=== PATIENT | female | born 1955 | race Caucasian/White ===

== ENCOUNTER 2017-05-15 12:21 | Inpatient (IN) ==
[2017-05-15 13:48] LABS: Basophils % 0.5 %; Hematocrit 39.8 % (35.3-44.9); Hemoglobin 13.3 g/dL (11.5-15.4); Immature Granulocytes % 0.4 % (0-4); Lymphocytes # 2.7 K/mcL (0.6-4.6); Lymphocytes % 32.5 %; Mean Corpuscular HGB Conc 33.4 g/dL (31.6-35.5); Mean Corpuscular Volume 89.8 fL (83.0-100.0); Mean Platelet Volume 9.5 fL (9.4-12.4); Monocytes # 0.7 K/mcL (0.0-1.3); Monocytes % 8.2 %; Neutrophils # 4.9 K/mcL (1.6-8.9); Platelet Count 360 K/mcL (140-400); Red Blood Count 4.43 M/mcL (3.82-4.97); Red Cell Distribution Width 13.1 % (11.5-14.5); Segmented Neutrophils % 58.4 %
[2017-05-15 14:02] LABS: Potassium 3.6 mEq/L (3.5-4.5)
[2017-05-15 14:05] LABS: Calcium 14.9 mg/dL (8.6-10.8)
[2017-05-15] MEDS ORDERED: 0.9 % Sodium Chloride 1,000 ML IVC ONE (14:36)
[2017-05-15 14:44] LABS: Bilirubin,Urine Negative (Negative); Blood,Urine Negative (Negative); Clarity,Urine Clear (Clear); Color,Urine Yellow (Yellow); Glucose,Urine (UA) Normal (Normal); Ketones,Urine Negative (Negative); Leukocyte Esterase,Urine Small (Negative); Nitrite,Urine Negative (Negative); PH,Urine 5.5 pH Units (5.0-8.0); Protein,Urine Negative (Neg-Trace); Specific Gravity,Urine 1.024 (1.010-1.025); Urobilinogen,Urine Normal (Normal)
[2017-05-15 14:47] LABS: Bacteria,Urine None Seen per hpf (None-Few); Hyaline Casts,Urine None Seen per lpf (None-Few); RBC,Urine 0-3 per hpf (0-3); Squamous Epithelial Cell,Urine Many per lpf (None-Few)
--- NOTE | 2017-05-15 15:12 | Emergency Department Note ---
Disposition Clinical Impression: Hypercalcemia, Acute kidney injury Disposition: Admitted As Inpatient Condition: Good Referrals: Liz Gamez, [employer] [Primary Care Provider] - Forms: ED Satisfaction Letter Time of Disposition: 15:13 General Adult HPI - General Chief complaint: ED Recheck/Abnormal Lab/Rx Stated complaint: "renal failure" Time Seen by Provider: 05/15/17 13:14 Source: patient Mode of arrival: ambulatory Limitations: no limitations Nursing Notes Reviewed: Yes Vital Signs Reviewed: Yes - History of Present Illness HPI Narrative: 61-year-old female presents with concerns of abnormal kidney function on outpatient testing. Patient has had a progressive decline of her kidney function over the past 6 months and was sent into the emergency department by her primary care provider. Patient denies nausea, vomiting, diarrhea, abdominal pain, chest pain, shortness of breath. She states that she is eating and drinking well at home without difficulty. Pain Scale: 4 - Related Data Home Medications Medication Instructions Recorded Confirmed Biotin 1 mg PO DAILY 08/14/16 08/14/16 Calcium Carbonate/Vitamin D3 1 each PO DAILY 08/14/16 08/14/16 [Calcium 1,000 + D3 Caplet] Cyanocobalamin (Vitamin B-12) 1,000 mcg SL DAILY 08/14/16 08/14/16 [Vitamin B-12] Esomeprazole Magnesium [Nexium 20 mg PO DAILY 08/14/16 08/14/16 24Hr] Levothyroxine [Synthroid] 88 mcg PO DAILY 08/14/16 08/14/16 Multivitamin [Multivitamins] 1 each PO DAILY 08/14/16 08/14/16 Oxybutynin [Ditropan] 5 mg PO BID 08/14/16 08/14/16 Syringe W-Needle,Disposab,1 ml 1 each IJ WE 08/14/16 08/14/16 [Allergy Syringe] Valsartan/Hydrochlorothiazide 1 each PO DAILY 08/14/16 08/14/16 [Diovan Hct 320-25 mg Tablet] Azo 12/23/16 12/23/16 Previous Rx's Medication Instructions Recorded Polymyxn-B/Trimeth Opth Drops 1 drop LEFT EYE QID 7 Days 12/23/16 [Polytrim Opth Drops] Sulfamethoxazole/Trimeth DS 1 each PO BID #10 tablet 12/23/16 [Bactrim DS] HYDROcodone/Acet 5/325 mg [[place] 1 tab PO Q6H PRN #10 tab 04/11/17 5-325 mg] Allergies Allergy/AdvReac Type Severity Reaction Status Date / Time Penicillins [PCN] Allergy Rash Verified 05/15/17 12:34 All systems ED: reviewed and negative except as stated. Constitutional: Denies: fever, chills, weakness Cardiovascular: Denies: chest pain, palpitations Respiratory: Denies: cough, dyspnea, wheezes Gastrointestinal: Denies: abdominal pain, nausea, vomiting Past Medical History - Past Medical History Attestation: Yes The following information was validated with the patient. Source: patient Medical history: Reports: hypertension, renal disease, thyroid disease, other Surgical history: Reports: cholecystectomy Psychiatric history: Reports: no psych history - Social History Smoking Status: Never smoker Smokeless Tobacco Status: No Alcohol use: Reports: rarely Drug use: Reports: none Physical Exam General: Alert and in no acute distress Skin: Warm, dry, intact Head: Normocephalic and atraumatic Neck: Supple, trachea midline and no tenderness Cardiovascular: RRR, no murmur, normal perfusion Respiratory: CTAB, no wheezing, cough, or respiratory distress Musculoskeletal: Normal strength, no tenderness, swelling or deformity GI: Soft, nontender, nondistended. Bowel sounds present Neuro: A&O to person, place, time and situation. No focal deficits noted on exam Psychiatric: cooperative and appropriate mood and affect. - General Limitations: no limitations General appearance: alert, in no apparent distress Course Vital Signs Temperature 98.0 F 05/15/17 12:32 Pulse Rate 93 05/15/17 12:32 Respiratory Rate 16 05/15/17 12:32 Blood Pressure 122/80 05/15/17 12:32 O2 Sat by Pulse Oximetry 97 05/15/17 12:32 Temperature 98.0 F 05/15/17 12:32 Pulse Rate 82 05/15/17 14:32 Respiratory Rate 18 05/15/17 14:32 Blood Pressure 122/52 05/15/17 14:32 O2 Sat by Pulse Oximetry 97 05/15/17 14:32 Oxygen Delivery Oxygen Delivery Room Air Medical Decision Making - MDM Narrative Medical decision making narrative: Patient is significantly elevated calcium level which is most concerning for possible malignancy. Her hypercalcemia may be the reason for her progressive decline in her kidney functioning. He spoke with Dr. Hammond, with whom the patient had an appointment scheduled, who agreed with the plan for admission to the hospital for further evaluation of possible malignancy and aggressive rehydration. - Medical Records Medical records reviewed: Yes I reviewed the patient's medical records. - Lab Data Lab results reviewed: Yes I reviewed the patient's lab results. Result diagrams: 05/15/17 13:35 05/15/17 13:35 Lab Results 05/15/17 05/15/17 05/15/17 Range/Units 13:35 13:35 14:39 WBC 8.4 (4.3-11.1) K/mcL RBC 4.43 (3.82-4.97) M/mcL Hgb 13.3 (11.5-15.4) g/dL Hct 39.8 (35.3-44.9) % MCV 89.8 (83.0-100.0) fL MCH 30.0 (28.0-33.3) pg MCHC 33.4 (31.6-35.5) g/dL RDW 13.1 (11.5-14.5) % Plt Count 360 (140-400) K/mcL MPV 9.5 (9.4-12.4) fL Immature Gran % 0.4 (0-4) % Seg Neutrophils % 58.4 % Lymphocytes % 32.5 % Monocytes % 8.2 % Eosinophils % 0.0 % Basophils % 0.5 % Neutrophils # 4.9 (1.6-8.9) K/mcL Lymphocytes # 2.7 (0.6-4.6) K/mcL Monocytes # 0.7 (0.0-1.3) K/mcL Eosinophils # 0.0 (0.0-0.6) K/mcL Basophils # 0.0 (0.0-0.2) K/mcL Sodium 138 (136-145) mEq/L Potassium 3.6 (3.5-4.5) mEq/L Chloride 101 (98-109) mEq/L Carbon Dioxide 25 (19-29) mEq/L BUN 102 H (7-20) mg/dL Creatinine 3.27 H (0.57-1.11) mg/dL Est GFR ( Amer) 18 L (> 60) Est GFR (Non-Af Amer) 14 L (> 60) BUN/Creatinine Ratio 31 H (6-26) Glucose 111 H (70-99) mg/dL Calculated Osmolality 319 H (280-300) Calcium 14.9 H* (8.6-10.8) mg/dL Ur Specimen Adequacy See below A Urine Color Yellow (Yellow) Urine Clarity Clear (Clear) Urine pH 5.5 (5.0-8.0) pH Units Ur Specific [place] 1.024 (1.010-1.025) Urine Protein Negative (Neg-Trace) mg/dL Urine Glucose (UA) Normal (Normal) mg/dL Urine Ketones Negative (Negative) mg/dL Urine Blood Negative (Negative) Urine Nitrite Negative (Negative) Urine Bilirubin Negative (Negative) Urine Urobilinogen Normal (Normal) mg/dL Ur Leukocyte Esterase Small H (Negative) Urine Microscopic RBC 0-3 (0-3) per hpf Urine Microscopic WBC 5-15 H (0-3) per hpf Ur Squamous Epith Cells Many H (None-Few) per lpf Urine Bacteria None Seen (None-Few) per hpf Hyaline Casts None Seen (None-Few) per lpf Ur Culture Indicated? YES A (NO) - Radiology Data Radiology results reviewed: Yes I reviewed the patient's radiology results.
[2017-05-15] MEDS ORDERED: Acetaminophen 325 MG TABLET PO PRN (16:41)
[2017-05-15] MEDS ORDERED: Naloxone 0.4 MG/ML INJ IVP PRN (16:41)
--- NOTE | 2017-05-15 16:55 | Internal Med History&Physical ---
<Krista Dickinson M - Last Filed: 05/15/17 19:09> Date of Encounter: 05/15/17 Time of Encounter: 16:51 Assessment and Plan (1) Acute kidney injury Current visit: Yes Status: Acute Patient's BUN and creatinine elevated today to 102, and 3.27 respectively. Previous creatinine was 1.78 on April 29. Patient also had a retroperitoneal ultrasound done today as an outpatient due to the concern for her kidney function and it showed left renal atrophy, with the left kidney being echogenic and containing small cysts, no hydronephrosis. Hold home dose of valsartan hydrochlorothiazide. Hydrate with 0.9 normal saline at [address] Hammond of nephrology consulted and will see patient. (2) Hypercalcemia Current visit: Yes Status: Acute Calcium of 14.9 today up from normal value on April 29. Patient reporting occasional feet tingling, but otherwise denying any symptoms that would be associated with hypercalcemia. Patient reports she stopped her PPI a few weeks ago after her daughter found something online that said it might be causing problems with her kidneys, and has instead been taking Tums at least daily in addition to her daily calcium supplement. Hypercalcemia may be result of increased oral intake along with COURTNEY, but concern for malignancy as well. We will hold Tums and calcium supplement. Check PTH and phosphorus. Check calcium with labs tomorrow morning. (3) Hypertension Current visit: Yes Status: Acute Holding home losartan/HCTZ due to COURTNEY. Patient's blood pressure has been controlled since arrival. Hydralazine 10mg IVP Q6hr PRN for SBP > 160 or DBP > 100. Qualifiers: Hypertension type: essential hypertension Qualified Code(s): I10 - Essential (primary) hypertension (4) Sleep apnea Current visit: Yes Status: Acute Respiratory therapy consulted for CPAP. Qualifiers: Sleep apnea type: unspecified type Qualified Code(s): G47.30 - Sleep apnea , unspecified (5) Borderline diabetes Current visit: Yes Status: Acute Patient reports "borderline diabetes". Will check Hgb A1c and monitor glucose with daily chemistry. (6) DVT prophylaxis Current visit: Yes Status: Acute anti-embolic stockings Heparin 5000u SQ TID Internal Medicine - H&P: HPI Chief complaint: abnormal lab values Admitted From: Emergency Dept Plans for Post Hospital Care: Home History of present illness: Ms. Welch is a 61 year old female with hypertension, hypothyroid, acid reflux , borderline diabetes, and sleep apnea presented to the emergency department today at the instruction her PCP for abnormal lab values. Patient's PCP has been following her kidney function recently as it has been shown to be getting worse. She had labs drawn this morning as well as a retroperitoneal ultrasound because of this, and her kidney function was significantly worse. Her creatinine was up to 3.27, from 1.78 on April 29. BUN was also elevated at 102. Additionally her calcium was elevated to 14.5, up from normal value on April 29. Patient denies any significant symptoms. She denies any lightheadedness, chest pain, palpitations, nausea, vomiting, abdominal pain, muscle cramping. She reports a little bit increased shortness of breath while walking recently. She also reports that her feet have been tingling on and off for the last 3 months. Evaluation in the emergency department included a repeat of labs which confirmed the elevated creatinine and calcium. Dr. Hammond of nephrology was consulted and plans to see the patient. On exam, patient alert and oriented, in no acute distress. Heart has regular rate and rhythm, lungs are clear bilaterally to auscultation. Peripheral pulses intact, trace bilateral lower extremity peripheral edema. Past Med Surg Social Fam HX - Past Medical History Medical history: GERD, hypertension, renal disease, thyroid disease, other Psychiatric history: no psych history - Past Surgical History Surgical History: cholecystectomy - Social History Smoking Status: Never smoker Smokeless Tobacco Status: No Alcohol use: rarely Drug use: none - Family History Mother Living Status: Still Living Father Living Status: Age at : 73 Hx Family Genitourinary Disorders: Yes (ESRD on HD) Internal Medicine - H&P: Meds Levothyroxine [Synthroid] 88 mcg PO QAM 08/14/16 [History] Multivitamin [Multivitamins] 1 each PO DAILY 08/14/16 [History] Oxybutynin [Ditropan] 5 mg PO BID 08/14/16 [History] Syringe W-Needle,Disposab,1 ml [Allergy Syringe] 1 each IJ WE 08/14/16 [History] Valsartan/Hydrochlorothiazide [Diovan Hct 320-25 mg Tablet] 1 each PO DAILY [History] Albuterol Sulfate [Ventolin Hfa] 2 puff IH Q4H PRN 05/15/17 [History] Biotin 5 mg PO DAILY 05/15/17 [History] Calcium Carbonate [Calcium] 1,000 mg PO DAILY 05/15/17 [History] EPINEPHrine [Epipen] 0.3 mg IM ONCE PRN 05/15/17 [History] Allergies Penicillins [PCN] Allergy (Verified 05/15/17 12:34) Rash All Systems PM: A 10-system review of systems was performed and is negative for pertinent findings except as documented above in the HPI. - Constitutional Constitutional: no chills, no fever(s), no night sweats - EENT Eyes: no change in vision, no discharge, no pain, no photophobia Ears: no ear discharge, no ear pain, no tinnitus Nose, mouth and throat: no dysphagia, no nasal discharge, no neck pain, no sore throat - Cardiovascular Cardiovascular ROS IM: dyspnea on exertion, no chest pain, no diaphoresis, no dyspnea, no lightheadedness, no palpitations, no syncope - Respiratory Respiratory: no cough, no dyspnea, no wheezing, no excessive phlegm production - Gastrointestinal Gastrointestinal: no abdominal pain, no diarrhea, no hematemesis, no hematochezia, no melena, no nausea, no vomiting - Genitourinary Genitourinary: no change in urinary stream, no dysuria, no flank pain, no hematuria - Musculoskeletal Musculoskeletal ROS IM: tingling (in feet on and off), no numbness - Integumentary Integumentary IM: no rash, no unusual bruising - Neurological Neurological ROS: no confusion, no convulsions, no focal weakness, no numbness, no tingling, no tremor(s) - Hematologic/Lymphatic Hematologic/Lymphatic: no easy bruising - Constitutional Vitals: Temp Pulse Resp BP Pulse Ox 98.0 F 57 18 118/58 98 05/15/17 12:32 05/15/17 15:57 05/15/17 15:57 05/15/17 15:57 05/15/17 15:57 General appearance: Present: A&O X 3, morbidly obese, pleasant, no acute distress - Head Head exam: Present: atraumatic, normocephalic - Eye Eye exam: Present: PERRL, conjuntiva pink, sclera anicteric Pupils: Present: PERRL - Neck Neck exam general surgery: Present: supple, trachea midline. Absent: lymphadenopathy - Respiratory Respiratory exam: Present: CTAB. Absent: accessory muscle use, rales, rhonchi, wheezes - Cardiovascular Cardiovascular exam: Present: RRR, +S1, +S2. Absent: diastolic murmur, gallop, rubs, systolic murmur - GI/Abdominal GI/Abdominal exam: Present: normal bowel sounds, soft, no peritoneal signs. Absent: distended, tenderness - Extremities Exam Extremities exam: Present: pedal edema (trace bilateral), warm, radial pulses palpable and symetrical. Absent: calf tenderness, cyanotic - Neurological Exam Neurological exam: Present: CN II-XII intact, oriented X3, no focal deficits. Absent: facial droop, speech deficit - Skin Skin exam: Present: dry, intact Internal Med - H&P Results - Labs CBC & Chem 7: 05/15/17 13:35 05/15/17 13:35 Labs: Short CBC 05/15/17 Range/Units 13:35 WBC 8.4 (4.3-11.1) K/mcL Hgb 13.3 (11.5-15.4) g/dL Hct 39.8 (35.3-44.9) % Plt Count 360 (140-400) K/mcL Neutrophils # 4.9 (1.6-8.9) K/mcL BMP 05/15/17 13:35 Sodium 138 Potassium 3.6 Chloride 101 Carbon Dioxide 25 BUN 102 H Creatinine 3.27 H Glucose 111 H Calcium 14.9 H* Urine 05/15/17 Range/Units 14:39 Urine Color Yellow (Yellow) Urine Clarity Clear (Clear) Urine pH 5.5 (5.0-8.0) pH Units Ur Specific [place] 1.024 (1.010-1.025) Urine Protein Negative (Neg-Trace) mg/dL Urine Glucose (UA) Normal (Normal) mg/dL <Rodri Islas - Last Filed: 05/15/17 19:21> Date of Encounter: 05/15/17 Internal Medicine - H&P: HPI History of present illness: Ms. Welch is a 61 year old female All Systems PM: A 10-system review of systems was performed and is negative for pertinent findings except as documented above in the HPI. - Constitutional Vitals: Temp Pulse Resp BP Pulse Ox 97.8 F 58 18 109/68 96 05/15/17 17:41 05/15/17 17:41 05/15/17 17:41 05/15/17 17:41 05/15/17 17:41 Internal Med - H&P Results - Labs CBC & Chem 7: 05/15/17 13:35 05/15/17 13:35 - Attending Attestation I have seen and examined pt. I discussed with TI[employer] DESIGN ENGINEER regarding the management plan. I agree with the documentation. Pt has progressive worsen renal function. She has hypercalcemia as well. Will treat pt with IVF, f/u renal function, calcium level, and PTH. nephro consult informed.
[2017-05-15 17:19] LABS: Phosphorous 3.9 mg/dL (2.3-4.7)
[2017-05-15] MEDS: 0.9 % Sodium Chloride 1,000 ML IVC SCH (19:49)
[2017-05-15] MEDS: *HR* Heparin 5,000 UNIT/ML VIAL SQ SCH (23:56)
[2017-05-16 05:19] LABS: Hemoglobin A1C 5.9 %
[2017-05-16 05:21] LABS: Basophils % 0.4 %; Hematocrit 33.5 % (35.3-44.9); Immature Granulocytes % 0.4 % (0-4); Lymphocytes # 1.7 K/mcL (0.6-4.6); Lymphocytes % 16.2 %; Mean Corpuscular HGB Conc 33.1 g/dL (31.6-35.5); Mean Corpuscular Hemoglobin 30.5 pg (28.0-33.3); Monocytes # 0.9 K/mcL (0.0-1.3); Monocytes % 8.1 %; Platelet Count 258 K/mcL (140-400); Red Blood Count 3.64 M/mcL (3.82-4.97); Red Cell Distribution Width 13.3 % (11.5-14.5); Segmented Neutrophils % 74.9 %
[2017-05-16 05:24] LABS: Albumin 3.4 g/dL (3.5-5.0); Albumin/Globulin Ratio 0.9 (1.1-2.2); Bilirubin,Total 0.4 mg/dL (0.2-1.2); Globulin 3.8 g/dL (2.4-3.5); Phosphorous 2.7 mg/dL (2.3-4.7); Total Protein 7.2 g/dL (6.0-8.3)
[2017-05-16 05:26] LABS: Calcium 11.4 mg/dL (8.6-10.8)
[2017-05-16 05:30] LABS: Hemoglobin 11.1 g/dL (11.5-15.4)
[2017-05-16] MEDS: 0.9 % Sodium Chloride 1,000 ML IVC SCH ×3 (05:52→21:17)
--- NOTE | 2017-05-16 10:38 | Nephrology Consult Note ---
Date of Encounter: 05/16/17 Time of Encounter: 10:38 Assessment and Plan (1) Acute kidney injury Current Visit: Yes Status: Acute 61-year-old female history of hypothyroidism, reflux, prediabetes, osteoporosis presents with worsening renal function. since 2013 patient has been insecurity stage IIIA Renal function declined since November 2016 Presented with GFR 14. Calcium 14.5: on calcium carbonate, lisinopril hydrochlorothiazide, multivitamin and Tums PTH 7.2 Kidney ultrasound shows atrophic left kidney measuring 6 cm and right kidney measuring 10 cm. Albumin 3.4 There is no proteinuria in the urine. Plan: Baseline CKD stage IIIA now worsening. Unknown etiology at this point: unclear why left kidney is atrophic. There is a prerenal component as patient's kidney function improved with fluids. This also improved hypercalcemia. Underlying Malignancy? order immunoelectroparesis, PTrP order MAYRA, Hypoparathyroidism: Order 1-25 and 25 hydroxy Vit D levels Avoid nephrotoxic agents such as contrast and NSAIDs. (2) CKD (chronic kidney disease) Current Visit: Yes Status: Acute Qualifiers: Chronic kidney disease stage: stage 3 (moderate) Qualified Code(s): N18.3 - Chronic kidney disease, stage 3 (moderate) (3) Borderline diabetes Current Visit: Yes Status: Acute prediabetes A1c 5.9 no microalbuminuria (4) Hypercalcemia Current Visit: Yes Status: Acute plan as above (5) Hypertension Current Visit: Yes Status: Acute controlled. Hold valsartan and hydrochlorothiazide as patient is hypercalcemic and in COURTNEY Qualifiers: Hypertension type: essential hypertension Qualified Code(s): I10 - Essential (primary) hypertension History of Present Illness - Reason for Consult Consult date: 05/15/17 Acute Kidney Injury, Chronic Kidney Disease - Chief Complaint worsening renal function - History of Present Illness [age] female with history of osteo-porosis, hypertension, prediabetes, hypothyroidism presents to the ER due to worsening kidney function. The last 6 months patient's GFR has dropped from 50 to 14. On presentation patient denies nausea, vomiting, diarrhea, abdominal pain, fevers, chills, shortness of breath. States she has changed her diet to renal diet and is drinking 2 L of water per day. She has been taking herself, compliant with her medications. Denies any problems with urine production. Denies UTI. Denies recent travel. She had an ultrasound in the morning of her admission showing atrophic left kidney measuring 6 cm compared to right kidney measuring 10 cm. Had elevated calcium of 14 which was normal in April 29 and also a low PTH of 7.3. States she has felt fatigued recently. Denies history of cancer in immediate family. States and has breast cancer. Denies history of kidney disease in family. Denies smoking, drinking alcohol. Patient also has history of GERD and he spent Nexium. This list of as she thought it was causing her worsening kidney function, and is not treating her heartburn with Tums. Patient received 2 L of saline on admission. This improved her GFR to 20. She also had increased urination and 3 bouts of loose stools this morning that is new. Past Med Surg Social Fam HX - Past Medical History Medical history: GERD, hypertension, renal disease, thyroid disease, other Psychiatric history: no psych history - Past Surgical History Surgical History: cholecystectomy - Social History Smoking Status: Never smoker Smokeless Tobacco Status: No Alcohol use: rarely Drug use: none - Family History Mother Living Status: Still Living Father Living Status: Age at : 73 Hx Family Genitourinary Disorders: Yes (ESRD on HD) Medications and Allergies Levothyroxine [Synthroid] 88 mcg PO QAM 08/14/16 [History] Multivitamin [Multivitamins] 1 each PO DAILY 08/14/16 [History] Oxybutynin [Ditropan] 5 mg PO BID 08/14/16 [History] Syringe W-Needle,Disposab,1 ml [Allergy Syringe] 1 each IJ WE 08/14/16 [History] Valsartan/Hydrochlorothiazide [Diovan Hct 320-25 mg Tablet] 1 each PO DAILY [History] Albuterol Sulfate [Ventolin Hfa] 2 puff IH Q4H PRN 05/15/17 [History] Biotin 5 mg PO DAILY 05/15/17 [History] Calcium Carbonate [Calcium] 1,000 mg PO DAILY 05/15/17 [History] EPINEPHrine [Epipen] 0.3 mg IM ONCE PRN 05/15/17 [History] Allergies Penicillins [PCN] Allergy (Verified 05/15/17 12:34) Rash Review of Systems All Systems review (narrative): Constitutional: Denies fever, chills. Reports fatigue HEENT: Denies headache, vision changes, neck pain, sore throat, rhinorrhea Heart: Denies chest pain palpitations Lungs: Denies shortness of breath cough Abdomen: Denies abdominal pain nausea vomiting, melena, hematochezia. Reports loose stools Back: Denies back pain Kidney: Denies dysuria, hematuria Extremities: Denies swelling, pain Neuro: Denies numbness, and tingling Exam - Vital Signs Vital signs: Initial Vital Signs Temp Pulse Resp BP Pulse Ox 98.0 F 93 16 122/80 97 05/15/17 12:32 05/15/17 12:32 05/15/17 12:32 05/15/17 12:32 05/15/17 12:32 Vital Signs - Last 8 Hours Temp Pulse Resp BP Pulse Ox 05/16/17 08:07 97 05/16/17 06:50 97.7 F 62 16 99/66 97 05/16/17 06:00 97.6 F 71 18 107/58 97 Intake and Output 05/15/17 05/16/17 05/16/17 23:59 07:59 15:59 Intake Total 1120 / 1120 1100 / 1100 0 / 0 Output Total 0 / 0 0 / 0 Balance 1120 / 1120 1100 / 1100 0 / 0 Intake: IV Fluids 1000 / 1000 1000 / 1000 0.9 % Sodium Chloride 1, 1000 / 1000 1000 / 1000 000 ML @ 100 mls/hr IVC . Q10H PIPPA Rx#:[id number] Oral 120 / 120 100 / 100 0 / 0 Output: Urine 0 / 0 0 / 0 Other: Meal Dinner Breakfast Percent of Meal Consumed 100% 0% Stool Size Moderate Stool Consistency loose loose Stool Color Brown # Voids 4 1 # Bowel Movements 3 # Bowel Movement Diapers 1 Weight 81.42 kg 82.645 kg Patient Weight 05/16/17 23:59 Weight 82.645 kg - General Appearance General appearance: well-developed, well-nourished, appears started age, obese EENT: PERRL, mucous membranes moist Neck: no JVD, no thyromegaly, supple Respiratory: clear Cardiology: no murmurs, no rub, no gallops, no edema, regular rate, regular rhythm, normal S1, normal S2 Gastrointestinal: normoactive bowel sounds, no tenderness, no guarding, no organomegaly, no masses Integumentary: no rash, warm and dry Neurologic: no focal deficit, no asterixis, alert and oriented x3, reflexes 2+ and symmetric, gait normal, strength 5/5 Musculoskeletal: no deformities, no erythema, no cyanosis, no clubbing Psychiatric: mood/affect appropriate, cooperative Results - Lab Results 05/16/17 04:53 05/16/17 04:53 Most recent lab results Calcium 11.4 mg/dL (8.6-10.8) H D 05/16/17 04:53 Phosphorus 2.7 mg/dL (2.3-4.7) 05/16/17 04:53 Consult Discharge Plan - Plan Referrals: Liz Gamez, SENIOR GAMEM[employer]ER [Primary Care Provider] - (web request sent on 05/16/17)
[2017-05-16] MEDS: *HR* Heparin 5,000 UNIT/ML VIAL SQ SCH ×2 (10:57→17:16)
--- NOTE | 2017-05-16 13:45 | Internal Med Progress Note ---
<Maik Marvin - Last Filed: 05/16/17 14:06> Date of Encounter: 05/16/17 Time of Encounter: 10:45 - Assessment and plan (1) Acute kidney injury Current Visit: Yes Status: Acute Assessment and plan: Patient's creatinine was elevated on presentation at 3.27. This is up from 1.78 on April 29. -This morning, her creatinine is 2.47. -had a retroperitoneal ultrasound done as an outpatient due to the concern for her kidney function; showed L renal atrophy, with the L kidney being echogenic - and containing small cysts, no hydronephrosis. -Hold home dose of valsartan hydrochlorothiazide. -Hydrate with 0.9 normal saline at 100 mL per hour. -Nephrology has been consulted. (2) Hypercalcemia Current Visit: Yes Status: Acute Assessment and plan: Possibly result of increased oral intake of calcium along with her acute kidney injury. -Rule out possibility of cancer. -Calcium of 14.9 on admission. Today, her calcium was 11.4. -Patient reporting occasional feet tingling, but otherwise denying any symptoms that would be associated with hypercalcemia. -Stopped her PPI a few weeks ago after her daughter found something online that said it might be causing problems with her kidneys, and has instead been taking Tums at least daily in addition to her daily calcium supplement. -Both Tums and calcium supplements have been held -Patient's PTH was 7.2. -IgG MAYRA ordered to rule out possibility of multiple myeloma. (3) Hypertension Current Visit: Yes Status: Acute Assessment and plan: Holding home losartan/HCTZ due to COURTNEY. -Patient's blood pressure has been controlled since arrival. -Hydralazine 10mg IVP Q6hr PRN for SBP > 160 or DBP > 100. Qualifiers: Hypertension type: essential hypertension Qualified Code(s): I10 - Essential (primary) hypertension (4) Sleep apnea Current Visit: Yes Status: Acute Assessment and plan: Respiratory therapy consulted for CPAP. Qualifiers: Sleep apnea type: unspecified type Qualified Code(s): G47.30 - Sleep apnea , unspecified (5) Borderline diabetes Current Visit: Yes Status: Acute Assessment and plan: Patient reports "borderline diabetes". -Will check Hgb A1c and monitor glucose with daily chemistry. (6) Diarrhea Current Visit: Yes Status: Acute Assessment and plan: Patient reports having diarrhea since last night. -She has had several bowel movements this morning. -She also complains of some abdominal pain, which she describes as a vague discomfort. -We will perform stool culture. Qualifiers: Qualified Code(s): R19.7 - Diarrhea, unspecified - Subjective Interval history: Patient was seen and examined this morning. Patient denied having any complaints upon coming to the hospital. She does state however, she has had diarrhea since last night. She has had several bowel movements this morning. She denies having any sick contacts. She also complains of vague abdominal pain in the lower portion of her abdomen. She also admits to having some indigestion, for which she usually takes Tums. She denies having any fever, chills, fatigue, chest pain, or shortness of breath. She has no other complaints at this time. - Constitutional Vitals: Temp Pulse Resp BP Pulse Ox 98 F 67 16 96/44 97 05/16/17 11:29 05/16/17 11:29 05/16/17 11:29 05/16/17 11:29 05/16/17 11:29 General appearance: Present: morbidly obese, pleasant, no acute distress - ENT ENT exam: Present: mucous membranes moist - Respiratory Respiratory exam: Present: CTAB. Absent: accessory muscle use, rales, rhonchi, wheezes - Cardiovascular Cardiovascular exam: Present: RRR, +S1, +S2. Absent: diastolic murmur, gallop, rubs, systolic murmur - GI/Abdominal GI/Abdominal exam: Present: normal bowel sounds, soft, tenderness, no peritoneal signs. Absent: distended Additional comments: Patient does have tenderness in the central portion of her lower abdomen. This pain is not reproducible by palpation. She describes this pain as a vague discomfort. She has had it since her episodes of diarrhea began last night. - Psychiatric Psychiatric exam: Present: normal affect, normal mood Internal Medicine: Result - Labs CBC & Chem 7: 05/16/17 04:53 05/16/17 04:53 Labs: Short CBC 05/16/17 Range/Units 04:53 WBC 10.7 (4.3-11.1) K/mcL Hgb 11.1 L D (11.5-15.4) g/dL Hct 33.5 L (35.3-44.9) % Plt Count 258 (140-400) K/mcL Neutrophils # 8.0 (1.6-8.9) K/mcL BMP 05/16/17 04:53 Sodium 137 Potassium 4.0 Chloride 107 Carbon Dioxide 26 BUN 85 H Creatinine 2.47 H Glucose 99 Calcium 11.4 H D Liver Function 05/16/17 Range/Units 04:53 Total Bilirubin 0.4 (0.2-1.2) mg/dL AST 20 (5-34) Units/L ALT 17 (0-55) Units/L Alkaline Phosphatase 46 (38-126) Units/L Albumin 3.4 L (3.5-5.0) g/dL - VTE Documentation of Mechanical Device: Graduated compression elastic hosiery Consult Discharge Plan - Plan Referrals: Liz Gamez, ELECTRICAL CAD DESIGNER [Primary Care Provider] - (web request sent on 05/16/17) <Ryan Wood H - Last Filed: 05/17/17 10:09> Date of Encounter: 05/17/17 - Constitutional Vitals: Temp Pulse Resp BP Pulse Ox 97.9 F 66 18 124/63 98 05/17/17 07:16 05/17/17 07:16 05/17/17 07:16 05/17/17 07:16 05/17/17 07:16 Internal Medicine: Result - Labs CBC & Chem 7: 05/17/17 05:35 05/17/17 05:35 Labs: Short CBC 05/17/17 Range/Units 05:35 WBC 7.3 (4.3-11.1) K/mcL Hgb 9.8 L (11.5-15.4) g/dL Hct 30.7 L (35.3-44.9) % Plt Count 209 (140-400) K/mcL Neutrophils # 4.7 (1.6-8.9) K/mcL BMP 05/17/17 05:35 Sodium 141 Potassium 3.5 Chloride 115 H Carbon Dioxide 22 BUN 49 H D Creatinine 1.91 H Glucose 96 Calcium 9.2 D - Attending Attestation Acute renal failure unclear etiology, continue fluids, nephrology recommendations appreciated, labs pending Acute gastroenteritis resolving False-positive for C. difficile no treatment required Anemia and likely blood loss, likely dilutional Start Protonix IV for now, may discontinue if for no blood loss is evidence or strongly suspected Monitor CBC I examined this patient and my medical decision-making was reviewed with the Resident Physician. I agree with the documented findings, disposition and treatment plan as described except to the extent set forth below.
[2017-05-16 19:21] LABS: Adenovirus F 40/41 PCR Not detected (Not detect); Astrovirus PCR Not detected (Not detect); C.difficile Toxin A/B by PCR See reflex test (Not detect); Campylobacter by PCR Not detected (Not detect); Cryptosporidium by PCR Not detected (Not detect); Cyclospora cayetanensis PCR Not detected (Not detect); E. coli O157 by PCR Not detected (Not detect); Entamoeba histolytica PCR Not detected (Not detect); Enteroaggregative E.coli(EAEC) Not detected (Not detect); Enteropathogenic E.coli(EPEC) Not detected (Not detect); Enterotoxigenic E.coli (ETEC) Not detected (Not detect); Giardia lamblia PCR Not detected (Not detect); Norovirus GI/GII PCR Not detected (Not detect); Plesiomonas shigelloides PCR Not detected (Not detect); Rotavirus A PCR Not detected (Not detect); Salmonella PCR Not detected (Not detect); Sapovirus PCR Not detected (Not detect); Shig/EnteroinvasiveE coli EIEC Not detected (Not detect); Shigalike tox-prod E coli STEC Not detected (Not detect); Vibrio PCR Not detected (Not detect); Vibrio cholerae PCR Not detected (Not detect); Yersinia enterocolitica PCR Not detected (Not detect)
[2017-05-17] MEDS: *HR* Heparin 5,000 UNIT/ML VIAL SQ SCH ×2 (00:40→08:47)
[2017-05-17] MEDS: 0.9 % Sodium Chloride 1,000 ML IVC SCH ×3 (02:42→20:54)
[2017-05-17 06:13] LABS: Potassium 3.5 mEq/L (3.5-4.5)
[2017-05-17 06:15] LABS: Calcium 9.2 mg/dL (8.6-10.8)
[2017-05-17 06:24] LABS: Basophils % 0.4 %; Hematocrit 30.7 % (35.3-44.9); Hemoglobin 9.8 g/dL (11.5-15.4); Immature Granulocytes % 0.3 % (0-4); Lymphocytes # 1.9 K/mcL (0.6-4.6); Lymphocytes % 26.2 %; Mean Corpuscular HGB Conc 31.9 g/dL (31.6-35.5); Mean Corpuscular Volume 93.9 fL (83.0-100.0); Mean Platelet Volume 9.6 fL (9.4-12.4); Monocytes # 0.6 K/mcL (0.0-1.3); Monocytes % 8.1 %; Neutrophils # 4.7 K/mcL (1.6-8.9); Platelet Count 209 K/mcL (140-400); Red Blood Count 3.27 M/mcL (3.82-4.97); Red Cell Distribution Width 13.3 % (11.5-14.5)
--- NOTE | 2017-05-17 09:18 | Nephrology Progress Note ---
Date of Encounter: 05/17/17 Time of Encounter: 09:09 - Assessment and Plan (1) Acute kidney injury Current Visit: Yes Status: Acute Improved renal function GFR 20>27 Only intervention has been IVF. Hypercalcemia resolved Patient states she does not think she was ever dehydrated, drank on average 2L water daily. Plan: Likely prerenal component, hypercalcemia induced, however with evidence of left atrophic kidney there may be underlying chronic etiology. If below labs are negative, WNL decrease IVF to 75/hr awaiting immunoelectroparesis, PTrP, MAYRA, 1-25 and 25 hydroxy Vit D levels (2) CKD (chronic kidney disease) Current Visit: Yes Status: Chronic Qualifiers: Chronic kidney disease stage: stage 3 (moderate) Qualified Code(s): N18.3 - Chronic kidney disease, stage 3 (moderate) (3) Borderline diabetes Current Visit: Yes Status: Chronic (4) Hypercalcemia Current Visit: Yes Status: Resolved (5) Hypertension Current Visit: Yes Status: Chronic Qualifiers: Hypertension type: essential hypertension Qualified Code(s): I10 - Essential (primary) hypertension Subjective Principal diagnosis: COURTNEY on ckd Interval history: NO acute events overnight. Denies N/V. Had loose stools in past three bowel movements. Denies dysuria. Objective - Vital Signs Vital signs: Vital Signs Temp Pulse Resp BP Pulse Ox 05/17/17 07:16 97.9 F 66 18 124/63 98 05/17/17 05:21 97.9 F 70 16 96/61 96 05/17/17 00:08 98.6 F 75 16 104/59 98 05/16/17 20:04 98.2 F 84 16 126/66 94 05/16/17 16:20 97.9 F 65 16 97/62 99 05/16/17 11:29 98 F 67 16 96/44 97 Intake and Output 05/16/17 05/17/17 05/17/17 23:59 07:59 15:59 Intake Total 1000 / 1000 1000 / 1000 Output Total 0 / 0 Balance 1000 / 1000 1000 / 1000 Intake: IV Fluids 1000 / 1000 1000 / 1000 0.9 % Sodium Chloride 1, 1000 / 1000 1000 / 1000 000 ML @ 200 mls/hr IVC . Q5H PIPPA Rx#:[id number] Oral 0 / 0 Output: Urine 0 / 0 Other: Weight 84.096 kg Patient Weight 05/17/17 23:59 Weight 84.096 kg - General Appearance General appearance: Present: well-developed, well-nourished, appears started age Neck: Present: no JVD, supple Respiratory: Present: clear Cardiology: Present: no murmurs, no rub, no gallops, no edema, regular rate, regular rhythm, normal S1, normal S2 Gastrointestinal: Present: normoactive bowel sounds, no tenderness Integumentary: Present: no rash, warm and dry Neurologic: Present: no focal deficit, no asterixis, alert and oriented x3 Musculoskeletal: Present: no deformities, no erythema, no cyanosis, no clubbing Psychiatric: Present: mood/affect appropriate, cooperative - Lab 05/17/17 05:35 05/17/17 05:35 Most recent lab results Calcium 9.2 mg/dL (8.6-10.8) D 05/17/17 05:35 Phosphorus 2.7 mg/dL (2.3-4.7) 05/16/17 04:53 - VTE Documentation of Mechanical Device: Graduated compression elastic hosiery Consult Discharge Plan - Plan Referrals: Liz Gamez, MANAGER PROCUREMENT [Primary Care Provider] - (web request sent on 05/16/17)
--- NOTE | 2017-05-17 09:47 | Internal Med Progress Note ---
<Maik Marvin - Last Filed: 05/17/17 09:41> Date of Encounter: 05/17/17 Time of Encounter: 08:10 - Assessment and plan (1) Acute kidney injury Current Visit: Yes Status: Acute Assessment and plan: Patient's creatinine was elevated on presentation at 3.27. This is up from 1.78 on April 29. -Patient's creatinine has improved. Creatinine this morning was 1.91. -had a retroperitoneal ultrasound done as an outpatient due to the concern for her kidney function; showed L renal atrophy, with the L kidney being echogenic - and containing small cysts, no hydronephrosis. -Hold home dose of valsartan hydrochlorothiazide. -Hydrate with 0.9 normal saline at 100 mL per hour. -Nephrology has been consulted, and they recommend performing a renal Doppler ultrasound, which will be performed later today. (2) Hypercalcemia Current Visit: Yes Status: Resolved Assessment and plan: Possibly result of increased oral intake of calcium along with her acute kidney injury. -Patient's hypercalcemia has resolved since admission. Her calciums morning was 1.2. -Rule out possibility of cancer. -Patient reporting occasional feet tingling, but otherwise denying any symptoms that would be associated with hypercalcemia. -Both Tums and calcium supplements have been held -Patient's PTH was 7.2. -IgG MAYRA ordered to rule out possibility of multiple myeloma. (3) Hypertension Current Visit: Yes Status: Chronic Assessment and plan: Holding home losartan/HCTZ due to COURTNEY. -Patient's blood pressure has been controlled since arrival. -Hydralazine 10mg IVP Q6hr PRN for SBP > 160 or DBP > 100. -Blood pressure this morning was 124/63. Qualifiers: Hypertension type: essential hypertension Qualified Code(s): I10 - Essential (primary) hypertension (4) Sleep apnea Current Visit: Yes Status: Acute Assessment and plan: Respiratory therapy consulted for CPAP. Qualifiers: Sleep apnea type: unspecified type Qualified Code(s): G47.30 - Sleep apnea , unspecified (5) Borderline diabetes Current Visit: Yes Status: Chronic Assessment and plan: Patient reports "borderline diabetes". -Will check Hgb A1c and monitor glucose with daily chemistry. (6) Diarrhea Current Visit: Yes Status: Acute Assessment and plan: Patient reports having diarrhea yesterday. -She has had several bowel movements this morning, although she says that her stools were all performed. -She also complains of some abdominal pain, which she describes as a vague discomfort. -GI panel showed false positive for cdiff. All other stool toxins are negative. Qualifiers: Qualified Code(s): R19.7 - Diarrhea, unspecified (7) Anemia Current Visit: Yes Status: Acute Assessment and plan: Patient's hemoglobin this morning was 9.8. -This anemia is possibly dilutional. -Patient has been given fluids since arrival. -Repeat hemoglobin will be performed later today. Qualifiers: Qualified Code(s): D64.9 - Anemia, unspecified - Subjective Interval history: Patient was seen and examined at bedside this morning. She states that the diarrhea that she was having yesterday has since resolved. She does admit having several bowel movements this morning, however her symptoms have greatly improved from yesterday. She still does have some vague abdominal discomfort in the lower portion of her abdomen, but she states that this has improved from yesterday. Pain is not reproduced by palpation. She currently denies having nausea, vomiting, fever, chills, shortness of breath, or diarrhea. Patient has no other complaints at this time. - Constitutional Vitals: Temp Pulse Resp BP Pulse Ox 97.9 F 66 18 124/63 98 05/17/17 07:16 05/17/17 07:16 05/17/17 07:16 05/17/17 07:16 05/17/17 07:16 General appearance: Present: morbidly obese, pleasant, no acute distress - Head Head exam: Present: atraumatic, normocephalic - Neck Neck exam general surgery: Present: supple, trachea midline. Absent: lymphadenopathy - Respiratory Respiratory exam: Present: CTAB. Absent: accessory muscle use, rales, rhonchi, wheezes - Cardiovascular Cardiovascular exam: Present: RRR, +S1, +S2. Absent: diastolic murmur, gallop, rubs, systolic murmur - GI/Abdominal GI/Abdominal exam: Present: normal bowel sounds, soft, no peritoneal signs. Absent: distended, tenderness - Skin Skin exam: Present: dry, intact Internal Medicine: Result - Labs CBC & Chem 7: 05/17/17 05:35 05/17/17 05:35 Labs: Short CBC 05/17/17 Range/Units 05:35 WBC 7.3 (4.3-11.1) K/mcL Hgb 9.8 L (11.5-15.4) g/dL Hct 30.7 L (35.3-44.9) % Plt Count 209 (140-400) K/mcL Neutrophils # 4.7 (1.6-8.9) K/mcL BMP 05/17/17 05:35 Sodium 141 Potassium 3.5 Chloride 115 H Carbon Dioxide 22 BUN 49 H D Creatinine 1.91 H Glucose 96 Calcium 9.2 D - VTE Documentation of Mechanical Device: Graduated compression elastic hosiery Consult Discharge Plan - Plan Instructions: Acute Kidney Injury (GEN) Additional Instructions: Follow-up with nephrology in the outpatient setting. Referrals: Liz Gamez HEARING THERAPY TEACHER [Primary Care Provider] - (web request sent on 05/16/17) <Ryan Wood - Last Filed: 05/18/17 09:28> Date of Encounter: 05/18/17 - Constitutional Vitals: Temp Pulse Resp BP Pulse Ox 98.6 F 65 16 116/64 99 05/18/17 05:03 05/18/17 05:03 05/18/17 05:03 05/18/17 05:03 05/18/17 05:03 Internal Medicine: Result - Labs CBC & Chem 7: 05/18/17 06:23 05/18/17 06:23 Labs: Short CBC 05/17/17 05/18/17 Range/Units 15:03 06:23 WBC 7.8 (4.3-11.1) K/mcL Hgb 10.0 L 9.6 L (11.5-15.4) g/dL Hct 30.0 L 29.6 L (35.3-44.9) % Plt Count 197 (140-400) K/mcL Neutrophils # 5.4 (1.6-8.9) K/mcL BMP 05/18/17 06:23 Sodium 139 Potassium 3.6 Chloride 114 H Carbon Dioxide 23 BUN 36 H D Creatinine 1.92 H Glucose 97 Calcium 8.7 - Attending Attestation Acute renal failure secondary to hypercalcemia I examined this patient and my medical decision-making was reviewed with the Resident Physician. I agree with the documented findings, disposition and treatment plan as described except to the extent set forth below.
[2017-05-17] MEDS: Pantoprazole 40 MG VIAL IVP SCH (11:11)
[2017-05-18 05:04] VITALS: BP 116/64
[2017-05-18 06:54] LABS: Basophils % 0.4 %; Hematocrit 29.6 % (35.3-44.9); Hemoglobin 9.6 g/dL (11.5-15.4); Immature Granulocytes % 0.4 % (0-4); Lymphocytes # 1.7 K/mcL (0.6-4.6); Mean Corpuscular HGB Conc 32.4 g/dL (31.6-35.5); Mean Corpuscular Hemoglobin 30.1 pg (28.0-33.3); Mean Corpuscular Volume 92.8 fL (83.0-100.0); Mean Platelet Volume 9.7 fL (9.4-12.4); Monocytes # 0.6 K/mcL (0.0-1.3); Monocytes % 8.1 %; Neutrophils # 5.4 K/mcL (1.6-8.9); Platelet Count 197 K/mcL (140-400); Red Blood Count 3.19 M/mcL (3.82-4.97); Red Cell Distribution Width 13.4 % (11.5-14.5); Segmented Neutrophils % 69.1 %
[2017-05-18 07:03] LABS: Calcium 8.7 mg/dL (8.6-10.8); Potassium 3.6 mEq/L (3.5-4.5)
--- NOTE | 2017-05-18 09:05 | Discharge Summary ---
<Maik Marvin - Last Filed: 05/18/17 09:03> Date of Encounter: 05/18/17 Time of Encounter: 08:30 - Discharge Diagnosis (1) Acute kidney injury Priority: Primary Status: Acute Comments: Patient's creatinine was elevated on presentation at 3.27. This is up from 1.78 on April 29. -Patient's creatinine has improved. Creatinine this morning was 1.92 -had a retroperitoneal ultrasound done as an outpatient due to the concern for her kidney function; showed L renal atrophy, with the L kidney being echogenic - and containing small cysts, no hydronephrosis. -Patient was hydrated with 0.9 normal saline at 100 mL per hour. -Nephrology was consulted. Nephrology's assessment. Stated that patient's condition was likely prerenal, hypercalcemia induced. Patient does have evidence of left kidney atrophy. Patient should follow up with nephrology in the outpatient setting. (2) Hypercalcemia Priority: Secondary Status: Resolved Comments: Possibly result of increased oral intake of calcium along with her acute kidney injury. -Patient's hypercalcemia has resolved since admission. Calcium level this morning was 8.7. -Rule out possibility of cancer. -Patient reporting occasional feet tingling, but otherwise denying any symptoms that would be associated with hypercalcemia. -Both Tums and calcium supplements have been held -Patient's PTH was 7.2. -IgG MAYRA ordered to rule out possibility of multiple myeloma. -Additional tests like footman D levels, PTrP and MAYRA are still pending. (3) Hypertension Priority: Secondary Status: Chronic Comments: Holding home losartan/HCTZ due to COURTNEY. -Patient's blood pressure has been controlled since arrival. -Hydralazine 10mg IVP Q6hr PRN for SBP > 160 or DBP > 100. -Blood pressure this morning was 116/64. Qualifiers: Hypertension type: essential hypertension Qualified Code(s): I10 - Essential (primary) hypertension (4) Sleep apnea Priority: Secondary Status: Acute Comments: Respiratory therapy consulted for CPAP. Qualifiers: Sleep apnea type: unspecified type Qualified Code(s): G47.30 - Sleep apnea , unspecified (5) Borderline diabetes Priority: Secondary Status: Chronic Comments: Patient reports "borderline diabetes". -Will check Hgb A1c and monitor glucose with daily chemistry. (6) Diarrhea Priority: Secondary Status: Acute Comments: Patient reports having diarrhea yesterday. -She has had several bowel movements this morning, although she says that her stools were all performed. -She also complains of some abdominal pain, which she describes as a vague discomfort. -GI panel showed false positive for cdiff. All other stool toxins are negative. Qualifiers: Qualified Code(s): R19.7 - Diarrhea, unspecified (7) Anemia Priority: Secondary Status: Acute Comments: Patient's hemoglobin this morning was 9.6. -This anemia is possibly dilutional. -Patient has been given fluids since arrival. -Repeat hemoglobin will be performed later today. Qualifiers: Qualified Code(s): D64.9 - Anemia, unspecified - Discharge Medications Home Medications: Levothyroxine [Synthroid] 88 mcg PO QAM 08/14/16 [History] Multivitamin [Multivitamins] 1 each PO DAILY 08/14/16 [History] Oxybutynin [Ditropan] 5 mg PO BID 08/14/16 [History] Syringe W-Needle,Disposab,1 ml [Allergy Syringe] 1 each IJ WE 08/14/16 [History] Valsartan/Hydrochlorothiazide [Diovan Hct 320-25 mg Tablet] 1 each PO DAILY [History] Albuterol Sulfate [Ventolin Hfa] 2 puff IH Q4H PRN 05/15/17 [History] Biotin 5 mg PO DAILY 05/15/17 [History] Calcium Carbonate [Calcium] 1,000 mg PO DAILY 05/15/17 [History] EPINEPHrine [Epipen] 0.3 mg IM ONCE PRN 05/15/17 [History] Allergies/Adverse Reactions: Allergies Penicillins [PCN] Allergy (Verified 05/15/17 12:34) Rash Date of admission: 05/15/17 16:48 Primary care physician: Liz Gamez CNP Consults: 05/16/17 19:58 Consult to Nutrition [CONS] Routine Comment: diabetic & renal diet education requested Consulting Provider: NUTRITION Reason for Dietary Consult: Diet Education Discharging clinician: Maik Marvin Anticipated date of discharge: 05/18/17 - Patient Status Disposition: Home, Self-Care Condition: Good Overall status at discharge: patient is progressing back to baseline - Discharge Instructions Instructions: Acute Kidney Injury (GEN) Follow Up With: Donini,Liz N, PASTEURIZER [Primary Care Provider] - (web request sent on 05/16/17) Additional Instructions: Follow-up with nephrology in the outpatient setting. - Diet and Activity Activity: increase activity as tolerated Diet: advance to your usual diet Hospital course: Ms. Welch is a 61 year old female with a past medical history of HTN, hypothyroid, acid reflux, borderline diabetes, and sleep apnea presented to the ED at the instruction her PCP for abnormal lab values. Patient's PCP has been following her kidney function recently as it has been shown to be getting worse. Her creatinine had increased to 3.27, from 1.78 on April 29. Her calcium was elevated to 14.5, up from normal value on April 29. Patient denies any significant symptoms. She denies any lightheadedness, chest pain, palpitations , nausea, vomiting, abdominal pain, muscle cramping. Evaluation in the ED included a repeat of labs, confirming elevated creatinine and calcium. On physical examination the ED, patient denied having any numbness, tingling, nausea, vomiting, or abdominal pain. Heart and lungs were clear to auscultation. Peripheral pulses were intact, but there was trace bilateral lower extremity peripheral edema. During her stay in the hospital, patient did not have any symptoms related to hypercalcemia. She did however develop diarrhea on the second day of admission. GI was done, and no infectious cause was found. Patient's diarrhea had resolved after 1 day. During this time, patient stated that she had some lower abdominal pain, which she described as a cramp-like sensation. She denied having any sick contacts. She denied having fever, nausea, or vomiting. Patient was given IV fluids, and her creatinine gradually improved. On date of discharge, patient's creatinine is 1.92. Patient's calcium is also decreased to 8.7, from an initial elevated level of 14.9. On date of discharge, patient's diarrhea has fully resolved. Patient has no complaints on date of discharge. She states that she will likely get a second opinion on the condition of her kidneys, and will follow up in the outpatient setting with nephrology. - Time Spent with Patient Total time spent providing and/or coordinating discharge services: Greater than 30 minutes - Constitutional Vitals: Temp Pulse Resp BP Pulse Ox 98.6 F 65 16 116/64 99 05/18/17 05:03 05/18/17 05:03 05/18/17 05:03 05/18/17 05:03 05/18/17 05:03 General appearance: Present: morbidly obese, pleasant, no acute distress - Head Head exam: Present: atraumatic, normocephalic - Neck Neck exam general surgery: Present: supple, trachea midline. Absent: lymphadenopathy - Respiratory Respiratory exam: Present: CTAB. Absent: accessory muscle use, rales, rhonchi, wheezes - Cardiovascular Cardiovascular exam: Present: RRR, +S1, +S2. Absent: diastolic murmur, gallop, rubs, systolic murmur - GI/Abdominal GI/Abdominal exam: Present: normal bowel sounds, soft, no peritoneal signs. Absent: distended, tenderness - Skin Skin exam: Present: dry, intact - VTE Documentation of Mechanical Device: Graduated compression elastic hosiery <Ryan Wood - Last Filed: 05/18/17 09:32> Date of Encounter: 05/18/17 Date of admission: 05/15/17 16:48 Primary care physician: Liz Gamez CNP Consults: 05/16/17 19:58 Consult to Nutrition [CONS] Routine Comment: diabetic & renal diet education requested Consulting Provider: NUTRITION Reason for Dietary Consult: Diet Education Hospital course: Ms. Welch is a 61 year old female - Time Spent with Patient Total time spent providing and/or coordinating discharge services: - Constitutional Vitals: Temp Pulse Resp BP Pulse Ox 98.6 F 65 16 116/64 99 05/18/17 05:03 05/18/17 05:03 05/18/17 05:03 05/18/17 05:03 05/18/17 05:03 - Attending Attestation Acute renal failure likely related to hypercalcemia, lab work pending and will be reviewed by nephrology as outpatient Unclear etiology of hypercalcemia, no malignancy suspected Improving, patient was given the option to stay an additional day but prefers to be discharged today I examined this patient and my medical decision-making was reviewed with the Resident Physician. I agree with the documented findings, disposition and treatment plan as described except to the extent set forth below.
[2017-05-18] MEDS: Pantoprazole 40 MG VIAL IVP SCH (09:58)
[2017-05-18 22:31] LABS: Alpha 2 Globulin (PEP) 0.81 g/dL (0.48-1.05); Beta Globulin (PEP) 0.75 g/dL (0.48-1.10)
[2017-05-20 09:41] LABS: IFE Reflexed NOT DONE
[2017-05-20 09:42] LABS: ANA IgG by ELISA NONE DETECTED (None Detected)
== END 2017-05-18 11:50 | disposition home or self-care (01) | DRG 684 ==
LOC: EMEROO 12:21 → 2ANU 16:48
PROVIDERS: ADMIT Nurse Practitioner Family; ATTEND Internal Medicine